=== PATIENT | male | born 1955 | race Native Hawaiian/Other Pacific Islander ===

== ENCOUNTER 2018-12-16 07:34 | Outpatient (CLI) | payer BC ==
[2018-12-16 08:22] LABS: PLATELET COUNT 201 K/uL (142-355)
[2018-12-16 08:44] LABS: POTASSIUM 4.9 mmol/L (3.6-5.2)
== END 2018-12-16 19:59 | disposition home or self-care (01) ==
LOC: LABW 07:34
PROVIDERS: Nurse Practitioner
DX: R53.82 Chronic fatigue, unspecified (principal); E11.9 Type 2 diabetes mellitus without complications; E78.00 Pure hypercholesterolemia, unspecified; E53.8 Deficiency of other specified B group vitamins; E55.9 Vitamin D deficiency, unspecified; Z12.5 Encounter for screening for malignant neoplasm of prostate
CPT/HCPCS: 36415; 80053; 80061; 82043; 82306; 82570; 82607; 83036; 84153; 84443; 84550; 85027

== ENCOUNTER 2022-03-30 06:28 | Outpatient (CLI) | payer BC ==
[2022-03-30 06:57] LABS: PLATELET COUNT 172 K/uL (142-355)
== END 2022-03-30 19:50 | disposition home or self-care (01) ==
LOC: LABW 06:28
PROVIDERS: ATTEND Internal Medicine
DX: N18.2 Chronic kidney disease, stage 2 (mild) (principal); R53.83 Other fatigue; R79.89 Other specified abnormal findings of blood chemistry
CPT/HCPCS: 36415; 80053; 81002; 82043; 82306; 82330; 82550; 82570; 82607; 82728; 83036; 83540; 83550; 83735; 83970; 84100; 84156; 84439; 84443; 84550; 85027; 85652; 86038; 86431